=== PATIENT | male | born 1970 | race Caucasian/White ===

== ENCOUNTER 2016-08-17 07:42 | Inpatient (IN) | payer OTHER ==
[~2016-08-17] VITALS: Ht 170.2 cm; Wt 113.1 kg
[~2016-08-17 07:42] MED LIST: AMBIEN10 MG PO; ASPIRIN325 MG PO; CYMBALTA60 MG PO; FERROUS SULFAT325 MG PO; KRILL OIL500 MG PO; LITE COAT ASPI325 M1 PO; MELOXICAM15 MG PO; MULTIPLE VITAM1 EACH PO; NORVASC5 MG PO; OXYCODONE HCL5 MG PO; OXYCONTIN10 MG PO; PRAVACHOL80 MG PO; PROTONIX40 MG PO; PROVENTIL,2.5 MG/3 M IH; ROXICODONE5 MG PO; SYMBICORT60 INHALAT IH; ULTRAM50 MG PO; VITAMIN D31000 UNI2 PO; XARELTO10 MG PO
[2016-08-17 08:42] LABS: EOSINOPHIL (%) 2.3 % (0-5); EOSINOPHIL COUNT 0.1 K/uL (0-0.3); IMMATURE GRANULOCYTE (%) 0.5 % (0.0-0.7); IMMATURE GRANULOCYTE COUNT 0.2 K/uL; LYMPHOCYTE COUNT 0.7 K/uL (1.0-2.8); MCH 32.4 PG (29.0-34.0); MCHC 34.7 G/DL (30.0-36.0); MCV 93.4 FL (86-99); MEAN PLAT.VOLUME 11.5 uM^3 (9.0-12.4); MONOCYTE (%) 11.8 % (3-12); MONOCYTE COUNT 0.5 K/uL (0-0.8); NEUTROPHIL (%) 68.7 % (45-76); PLATELET COUNT 141 K/uL (156-360); RBC DIS.WIDTH-CV 13.7 % (11.8-14.6); RBC DIS.WIDTH-SD 44.9 % (39-53); RED BLOOD COUNT 4.82 M/uL (4.00-5.50); WHITE BLOOD COUNT 4.3 K/uL (4.1-10.2)
[2016-08-17 08:52] LABS: INTER. NORMALIZED RATIO 1.2; PROTHROMBIN TIME 12.4 (9.2-11.2); PTT 29.9 (25-32)
[2016-08-17 09:00] LABS: CHLORIDE 99 mEq/L (99-109); POTASSIUM 3.5 mEq/L (3.7-5.4); SODIUM 134 mEq/L (136-147)
[2016-08-17 09:01] LABS: MAGNESIUM 1.8 mg/dL (1.3-2.7)
[2016-08-17 09:02] LABS: GLUCOSE 124 mg/dL (70-99)
[2016-08-17 09:03] LABS: ANION GAP 11 MEQ/L (2-14); TROP-I INTERPRETATION NEGATIVE; TROPONIN-I < 0.01 ng/mL (0.0-0.30)
[2016-08-17 09:06] LABS: GFR ESTIMATE (CALCULATED) > 59 mL/min/
[2016-08-17 09:07] LABS: UREA NITROGEN (BUN) 9 mg/dL (9-23)
[2016-08-17] MEDS ORDERED: VENTOLIN HFA18 GM IH (13:34)
[2016-08-17] MEDS ORDERED: ALEVE220 MG PO (13:34)
[2016-08-17 15:20] VITALS: BP 140/82
[2016-08-17 17:59] LABS: INFLUENZA A VIRAL ANTIGEN NEGATIVE; INFLUENZA B VIRAL ANTIGEN POSITIVE
[2016-08-17 19:34] VITALS: BP 138/80
[2016-08-17 23:42] VITALS: BP 133/82
[2016-08-18 03:50] VITALS: BP 163/82
[2016-08-18 07:10] VITALS: BP 162/91
[2016-08-18 07:10] LABS: ANION GAP 10 MEQ/L (2-14); CHLORIDE 102 MEQ/L (99-109); GFR ESTIMATE (CALCULATED) > 59 mL/min/; GLUCOSE 170 mg/dL (70-99); POTASSIUM 4.2 MEQ/L (3.7-5.4); SAMPLE HEMOLYSIS CHECK 0; SAMPLE ICTERIC CHECK 0; SAMPLE LIPEMIA CHECK 0; SODIUM 136 MEQ/L (136-147); UREA NITROGEN (BUN) 11 mg/dL (9-23)
[2016-08-18 07:14] LABS: EOSINOPHIL (%) 0 % (0-5); HEMATOCRIT 42.9 % (38.0-50.0); IMMATURE GRANULOCYTE (%) 0.2 % (0.0-0.7); LYMPHOCYTE COUNT 0.5 K/uL (1.0-2.8); MCHC 34.5 G/DL (30.0-36.0); MCV 95.8 FL (86-99); MEAN PLAT.VOLUME 11.9 uM^3 (9.0-12.4); MONOCYTE COUNT 0.7 K/uL (0-0.8); NEUTROPHIL (%) 85.9 % (45-76); NEUTROPHIL COUNT 7.1 K/uL (1.8-6.4); PLATELET COUNT 146 K/uL (156-360); RBC DIS.WIDTH-CV 13.6 % (11.8-14.6); RBC DIS.WIDTH-SD 47.7 % (39-53); RED BLOOD COUNT 4.48 M/uL (4.00-5.50)
[2016-08-18 07:15] LABS: WHITE BLOOD COUNT 8.3 K/uL (4.1-10.2)
[2016-08-18 09:11] LABS: INTERNAL CONTROL VALID? YES
[2016-08-18 12:35] VITALS: BP 115/68
[2016-08-18 12:45] VITALS: BP 140/66
[2016-08-18 16:19] VITALS: BP 138/83
[2016-08-18 23:38] VITALS: BP 138/72
[2016-08-19 07:35] LABS: ALKALINE PHOSPHATASE 70 IU/L (3-129); ANION GAP 8 MEQ/L (2-14); CHLORIDE 104 MEQ/L (99-109); EOSINOPHIL (%) 0 % (0-5); GFR ESTIMATE (CALCULATED) > 59 mL/min/; GLUCOSE 185 mg/dL (70-99); HEMATOCRIT 46.6 % (38.0-50.0); IMMATURE GRANULOCYTE (%) 0.4 % (0.0-0.7); LYMPHOCYTE COUNT 0.6 K/uL (1.0-2.8); MCH 33.3 PG (29.0-34.0); MCHC 34.1 G/DL (30.0-36.0); MCV 97.5 FL (86-99); MEAN PLAT.VOLUME 12.2 uM^3 (9.0-12.4); MONOCYTE COUNT 0.4 K/uL (0-0.8); NEUTROPHIL (%) 90.4 % (45-76); PLATELET COUNT 169 K/uL (156-360); POTASSIUM 4.5 MEQ/L (3.7-5.4); RBC DIS.WIDTH-CV 13.9 % (11.8-14.6); RBC DIS.WIDTH-SD 49.9 % (39-53); RED BLOOD COUNT 4.78 M/uL (4.00-5.50); SAMPLE HEMOLYSIS CHECK 0; SAMPLE ICTERIC CHECK 0; SAMPLE LIPEMIA CHECK 0; SODIUM 140 MEQ/L (136-147); TOTAL BILIRUBIN 0.3 MG/DL (0.0-1.0); UREA NITROGEN (BUN) 9 mg/dL (9-23)
[2016-08-19 07:39] LABS: WHITE BLOOD COUNT 11.1 K/uL (4.1-10.2)
[2016-08-19 08:11] VITALS: BP 149/81
[2016-08-19 12:12] VITALS: BP 148/81
[2016-08-19 16:16] VITALS: BP 140/70
[2016-08-19 23:59] VITALS: BP 141/60
[2016-08-20 07:06] LABS: HEMATOCRIT 48.7 % (38.0-50.0); MCH 31.6 PG (29.0-34.0); MCHC 32.6 G/DL (30.0-36.0); MCV 96.8 FL (86-99); RBC DIS.WIDTH-CV 13.9 % (11.8-14.6); RBC DIS.WIDTH-SD 49.2 % (39-53); RED BLOOD COUNT 5.03 M/uL (4.00-5.50); WHITE BLOOD COUNT 12.6 K/uL (4.1-10.2)
[2016-08-20 07:21] LABS: ANION GAP 10 MEQ/L (2-14); CHLORIDE 103 MEQ/L (99-109); GFR ESTIMATE (CALCULATED) > 59 mL/min/; GLUCOSE 224 mg/dL (70-99); MAGNESIUM 2.1 mg/dl (1.3-2.7); POTASSIUM 4.2 MEQ/L (3.7-5.4); SAMPLE HEMOLYSIS CHECK 0; SAMPLE ICTERIC CHECK 0; SAMPLE LIPEMIA CHECK 0; SODIUM 140 MEQ/L (136-147); UREA NITROGEN (BUN) 10 mg/dL (9-23)
[2016-08-20 08:08] LABS: PLATELET COUNT UNABLE TO REPORT K/uL (156-360)
[2016-08-20 08:13] VITALS: BP 139/78
[2016-08-20 11:24] VITALS: BP 138/71
[2016-08-20] MEDS ORDERED: OSELTAMIVIR PHO75 MG PO (14:22)
[2016-08-20] MEDS ORDERED: PREDNISONE20 MG PO (14:24)
[2016-08-20] MEDS ORDERED: CEFTIN500 MG PO (14:25)
== END 2016-08-20 15:04 | disposition home or self-care (01) | DRG 190 ==
LOC: EME 07:42 → EDOF 13:22 → 2EAST 13:22 → EDOF 13:22 → 2EAST 15:00
PROVIDERS: Emergency Medicine; Hospitalist; Internal Medicine
DX: J44.0 Chronic obstructive pulmonary disease with (acute) lower respiratory infection (principal); J96.01 Acute respiratory failure with hypoxia; J10.00 Influenza due to other identified influenza virus with unspecified type of pneumonia; R65.10 Systemic inflammatory response syndrome (SIRS) of non-infectious origin without acute organ dysfunction; J44.1 Chronic obstructive pulmonary disease with (acute) exacerbation; E66.9 Obesity, unspecified; G47.33 Obstructive sleep apnea (adult) (pediatric); F17.210 Nicotine dependence, cigarettes, uncomplicated; J45.909 Unspecified asthma, uncomplicated; F10.20 Alcohol dependence, uncomplicated; I10 Essential (primary) hypertension; R59.1 Generalized enlarged lymph nodes; Z68.39 Body mass index [BMI] 39.0-39.9, adult; E78.5 Hyperlipidemia, unspecified
CPT/HCPCS: 71010; 71020; 71275; 80048; 80053; 83605; 83735; 84484; 85025; 85027; 85610; 85730; 87040; 87070; 87205; 87449; 87502; 93005; 94640; 94640 76; 94760; 94799; 99202; 99281; 99285; J0456; J0696; J1650; J2270; J2930; J7030; J7050; J7512